=== PATIENT | female | born 1995 | race American Indian/Alaskan Native ===

== ENCOUNTER 2017-03-14 22:24 | Emergency (ER) | payer SELFPAY ==
[2017-03-14 22:52] LABS: Basophils % (Auto) 1.3 % (0.0-1.8); Hematocrit 39.8 % (30.3-42.9); Hemoglobin 12.9 gm/dl (10.1-14.3); Mean Corpuscular HGB Conc 33 % (30-34); Mean Corpuscular Hemoglobin 28 pg (28-32); Mean Corpuscular Volume 85 fl (79-97); Platelet Count 190 K/mm3 (140-440); Red Blood Count 4.67 M/mm3 (3.65-5.03); Red Cell Distribution Width 13.6 % (13.2-15.2); White Blood Count 9.6 K/mm3 (4.5-11.0)
[2017-03-14 23:13] LABS: Anion Gap 20 mmol/L; BUN/Creatinine Ratio 16; Blood Urea Nitrogen 11 mg/dL (7-17); Calcium 9.1 mg/dL (8.4-10.2); Carbon Dioxide 22 mmol/L (22-30); Chloride 102.4 mmol/L (98-107); Glucose 93 mg/dL (65-100); Potassium 4.4 mmol/L (3.6-5.0); Sodium 140 mmol/L (137-145)
--- NOTE | 2017-03-15 00:08 | XRay Report ---
FINAL REPORT EXAM: XR CHEST ROUTINE 2V HISTORY: Shortness of breath TECHNIQUE: PA and lateral views of the chest were submitted. FINDINGS: Heart size and mediastinum appear normal. The lungs are clear. The bones and soft tissues are well maintained. IMPRESSION: Normal chest.
--- NOTE | 2017-03-15 00:47 | Emergency Department Report ---
ED General Adult HPI - General Chief complaint: Dyspnea/Respdistress Stated complaint: SOB Time Seen by Provider: 03/15/17 00:29 Source: patient, RN notes reviewed Mode of arrival: Ambulatory Limitations: No Limitations - History of Present Illness Initial comments: This is a 21-year-old female. The patient is previously unknown to this provider. Her primary care doctor is with the [facility]. Patient presents to the ER with complaint of resolved chest tightness. The chest tightness started at 7:00 last night while running. It lasted for 30 minutes. It did not radiate anywhere. He did not have exacerbating or relieving factors. There is no nausea, vomiting or diaphoresis. Patient did incidentally endorse nasal congestion and cough. There is no leg pain. There is no leg swelling. No recent trips greater than 4 hours. No recent hospital admissions. Patient denies history of DVT and pulmonary and was, she is taking control tablets. Apparently a bystander has an inhaler, as the patient indicates improved her symptoms. She has no complaints at this time. She declines pain medication at this time. -: Gradual Location: chest Radiation: non-radiation Consistency: now resolved Improves with: movement, rest Worsens with: none Associated Symptoms: chest pain, cough, shortness of breath. denies: confusion , diaphoresis - Related Data Allergies Allergy/AdvReac Type Severity Reaction Status Date / Time No Known Allergies Allergy Unverified 03/14/17 22:37 ED Review of Systems ROS: Stated complaint: SOB Other details as noted in HPI Constitutional: denies: fever, malaise Eyes: denies: vision change ENT: congestion Respiratory: shortness of breath Cardiovascular: chest pain Gastrointestinal: denies: vomiting Genitourinary: denies: dysuria Musculoskeletal: denies: back pain Skin: denies: lesions Neurological: denies: weakness Psychiatric: denies: depression ED Past Medical Hx - Past Medical History Previous Medical History?: No - Social History Smoking Status: Never Smoker Substance Use Type: None ED Physical Exam - General Limitations: No Limitations General appearance: alert, in no apparent distress - Head Head exam: Present: atraumatic, normocephalic - Eye Eye exam: Present: normal appearance, EOMI. Absent: nystagmus - ENT ENT exam: Present: normal exam, normal orophraynx, mucous membranes moist, normal external ear exam - Neck Neck exam: Present: normal inspection, full ROM - Respiratory Respiratory exam: Present: normal lung sounds bilaterally. Absent: respiratory distress, chest wall tenderness - Cardiovascular Cardiovascular Exam: Present: regular rate, normal rhythm, normal heart sounds. Absent: bradycardia, tachycardia, irregular rhythm, systolic murmur, diastolic murmur, rubs, gallop - GI/Abdominal GI/Abdominal exam: Present: soft, normal bowel sounds. Absent: distended, tenderness, guarding, pulsatile mass - Extremities Exam Extremities exam: Present: normal inspection, full ROM, normal capillary refill , other (there is no palpable cord. There is a negative Homans sign.). Absent : pedal edema, joint swelling, calf tenderness - Back Exam Back exam: Present: normal inspection, full ROM. Absent: paraspinal tenderness , vertebral tenderness - Neurological Exam Neurological exam: Present: alert, oriented X3, normal gait, other (Extraocular movements intact. Tongue midline. No facial droop. Facial sensation intact to light touch in the V1, V2, V3 distribution bilaterally. 5 and 5 strength in 4 extremities.. Sensation is intact to light touch in 4 extremities.). Absent : motor sensory deficit - Psychiatric Psychiatric exam: Present: normal affect, normal mood - Skin Skin exam: Present: warm, dry, intact, normal color. Absent: rash ED Course Vital Signs 03/14/17 03/15/17 22:29 00:55 Temperature 98.9 F 98.6 F Pulse Rate 97 H 83 Respiratory 18 16 Rate Blood Pressure 115/70 Blood Pressure 113/74 [Right] O2 Sat by Pulse 100 99 Oximetry - Reevaluation(s) Reevaluation #1: 03/15/17 00:58 Differential diagnosis, including but not limited to: Anxiety, bronchitis, costochondritis, myocarditis, pericarditis Assessment and plan: 21-year-old female, low risk by well's criteria, low risk by JANICE score, low risk by heart score, troponin negative 2, EKG unremarkable 1, chest x-ray negative. Physical exam unremarkable. Patient in no distress at this time. Patient speaking and laughing with numerous friends and family members. Patient is suitable to follow-up in outpatient primary care doctor or senior enterprise architect for her lower chest discomfort. Reevaluation #2: 03/15/17 00:59 contacted holly and d/w Dr Seals she indicates patient on microgestin she indicates she will have the patient follow-up with the [facility] on Saturday. They will call back with timing appointment and that will be given to the nurse. Reevaluation #3: 03/15/17 01:35 The patient eloped prior to receiving her paperwork and information about her appointment with [place]. Nursing staff will attempt to contact patient and inform her as to date time and location of her follow-up appointment. ED Medical Decision Making - Lab Data Result diagrams: 03/14/17 22:40 03/14/17 22:40 Vital Signs 03/14/17 03/15/17 22:29 00:55 Temperature 98.9 F 98.6 F Pulse Rate 97 H 83 Respiratory 18 16 Rate Blood Pressure 115/70 Blood Pressure 113/74 [Right] O2 Sat by Pulse 100 99 Oximetry Lab Results 03/14/17 03/14/17 Range/Units 22:40 22:40 WBC 9.6 (4.5-11.0) K/mm3 RBC 4.67 (3.65-5.03) M/mm3 Hgb 12.9 (10.1-14.3) gm/dl Hct 39.8 (30.3-42.9) % MCV 85 (79-97) fl MCH 28 (28-32) pg MCHC 33 (30-34) % RDW 13.6 (13.2-15.2) % Plt Count 190 (140-440) K/mm3 Lymph % (Auto) 23.2 (13.4-35.0) % [place] % (Auto) 7.0 (0.0-7.3) % Eos % (Auto) 4.0 (0.0-4.3) % Baso % (Auto) 1.3 (0.0-1.8) % Lymph # 2.2 (1.2-5.4) K/mm3 [place]acy # 0.7 (0.0-0.8) K/mm3 Eos # 0.4 (0.0-0.4) K/mm3 Baso # 0.1 (0.0-0.1) K/mm3 Seg Neutrophils % 64.5 (40.0-70.0) % Seg Neutrophils # 6.2 (1.8-7.7) K/mm3 Sodium 140 (137-145) mmol/L Potassium 4.4 (3.6-5.0) mmol/L Chloride 102.4 (98-107) mmol/L Carbon Dioxide 22 (22-30) mmol/L Anion Gap 20 mmol/L BUN 11 (7-17) mg/dL Creatinine 0.7 (0.7-1.2) mg/dL Estimated GFR > 60 ml/min BUN/Creatinine Ratio 16 % Glucose 93 (65-100) mg/dL Calcium 9.1 (8.4-10.2) mg/dL Troponin T < 0.010 (0.00-0.029) ng/mL Critical care attestation.: If time is entered above; I have spent that time in minutes in the direct care of this critically ill patient, excluding procedure time. ED Disposition Clinical Impression: History of chest pain Disposition: Is pt being admited?: No Does the pt Need Aspirin: No Condition: Stable Instructions: Chest Pain (ED) Additional Instructions: Continue outpatient medications. Follow up on Saturday with your [place] appointment as directed and scheduled. Alternatively, follow-up with either her primary care doctor or any of the listed cardiology specialists within the next week. Return to the ER right away with new pain, worsened pain, migration of pain, fevers, chills, lethargy, irritability, projectile vomiting, change in mental status, inability to tolerate liquid feeds. Referrals: [facility] [Provider Group] - 3-5 Days [facility] [Provider Group] - 3-5 Days
[2017-03-15 00:56] VITALS: BP 113/74
[2017-03-15 01:12] LABS: Bilirubin,Urine NEG (Negative); Blood,Urine NEG (Negative); Ketones,Urine NEG (Negative); Leukocyte Esterase,Urine TR (Negative); Mucus,Urine FEW /HPF; Nitrite,Urine NEG (Negative); Protein,Urine <15 mg/dL mg/dL (Negative)
== END 2017-03-15 01:57 | disposition left against medical advice (07) ==
LOC: ED 22:24
DX: R07.89 Other chest pain (principal); R05 Cough; R06.02 Shortness of breath
CPT/HCPCS: 36415; 71020; 80048; 81001; 81025; 84484; 85025; 93005; 93010; 99284